=== PATIENT | female | born 1975 | race Asian ===

== ENCOUNTER 2016-12-23 19:40 | Emergency (ER) | payer OTHER ==
[~2016-12-23] VITALS: Ht 157.5 cm; Wt 63.5 kg
[~2016-12-23 19:40] MED LIST: IBUP-1689 PO
[2016-12-23] MEDS ORDERED: SUMA25TA9 PO (20:00)
[2016-12-23] MEDS ORDERED: AMIT10TA6 PO (20:00)
[2016-12-23] MEDS ORDERED: KETOROLAC TROMETHAMINE 30 MG/ML VIAL IVP ONE (21:15)
[2016-12-23] MEDS ORDERED: ONDANSETRON HCL 4 MG/2 ML VIAL IVP ONE (21:15)
[2016-12-23] MEDS ORDERED: MethylPREDNISolone SOD SUCC 125 MG/2 ML VIAL IVP ONE (21:15)
[2016-12-23 21:24] LABS: APPEARANCE,URINE CLEAR (CLEAR); GLUCOSE, URINE (UA) NEGATIVE (NEGATIVE); KETONES,URINE NEGATIVE (NEGATIVE); LEUKOCYTE ESTERASE ,URINE TRACE (NEGATIVE); OCCULT BLOOD,URINE TRACE (NEGATIVE); PH,URINE 7.5 (5.0-8.0); PROTEIN,URINE NEGATIVE (NEGATIVE)
[2016-12-23 21:33] LABS: SQUAMOUS EPITHELIAL CELL,UR Moderate /LPF (None Seen)
[2016-12-23 22:52] VITALS: BP 127/62
== END 2016-12-23 22:55 | disposition home or self-care (01) ==
LOC: EMS 19:43
DX: G43.909 Migraine, unspecified, not intractable, without status migrainosus (principal); Z91.013 Allergy to seafood
CPT/HCPCS: 70450; 81001; 84703; 87086; 96374; 96375; 99285; J1885; J2405; J2930

== ENCOUNTER 2017-09-02 10:15 | Emergency (ER) | payer OTHER ==
[~2017-09-02] VITALS: Ht 154.9 cm; Wt 62.7 kg
[~2017-09-02 10:15] MED LIST changes: +AMIT10TA6 PO; +SUMA25TA9 PO
[2017-09-02 10:22] VITALS: BP 134/108
[2017-09-02 13:03] LABS: APPEARANCE,URINE CLEAR (CLEAR); BILIRUBIN,URINE NEGATIVE (NEGATIVE); GLUCOSE, URINE (UA) NEGATIVE (NEGATIVE); KETONES,URINE NEGATIVE (NEGATIVE); LEUKOCYTE ESTERASE ,URINE NEGATIVE (NEGATIVE); NITRATE,URINE NEGATIVE (NEGATIVE); OCCULT BLOOD,URINE SMALL (NEGATIVE); PROTEIN,URINE NEGATIVE (NEGATIVE); UROBILINOGEN,URINE 0.2 mg/dL (<=1.0)
[2017-09-02 13:12] LABS: BASOPHILS % (AUTO) 0.6 % (0.0-2.0); EOSINOPHILS % (AUTO) 1.4 % (1.0-6.0); HEMOGLOBIN 15.8 g/dL (12.0-16.0); LYMPHOCYTES % (AUTO) 21.2 % (22.0-44.0); MEAN CORPUSCULAR HEMOGLOBIN 30.5 pg (26.0-34.0); MEAN CORPUSCULAR HGB CONC 33.7 G/dL (31.0-37.0); MEAN CORPUSCULAR VOLUME 91 fL (80-100); MONOCYTES # (AUTO) 0.5 K/uL (0.1-1.0); MONOCYTES % (AUTO) 4.9 % (2.0-9.0); NEUTROPHILS # (AUTO) 6.7 K/uL (1.8-7.7); NEUTROPHILS % (AUTO) 71.9 % (40.0-70.0); PLATELET COUNT (AUTO) 301 K/uL (150-450); RED CELL DISTRIBUTION WIDTH 13.8 % (11.5-14.5)
[2017-09-02 13:13] LABS: BACTERIA,URINE Few /HPF (None Seen); SQUAMOUS EPITHELIAL CELL,UR Few /LPF (None Seen); WBC,URINE 0-2 /HPF (0-5)
[2017-09-02 13:35] LABS: ANION GAP 7 mmol/L (8-16); CALCIUM, TOTAL 8.8 mg/dL (8.8-10.5); CARBON DIOXIDE 28 mmol/L (22-29); CHLORIDE 103 mmol/L (98-107); CREATININE 0.59 mg/dL (0.60-1.30); GLOMERULAR FILTR. RATE CALC > 60 mL/min (>60); GLUCOSE,RANDOM 82 mg/dL (70-110); POTASSIUM 4.1 mmol/L (3.5-5.1); SODIUM SERUM 138 mmol/L (136-145); UREA NITROGEN, BLOOD 6 mg/dL (7-18)
[2017-09-02 13:40] LABS: ALANINE AMINOTRANSFERASE 25 U/L (12-78); ALKALINE PHOSPHATASE 52 U/L (46-116); ASPARTATE AMINOTRANSFERASE 20 U/L (15-37); BILIRUBIN,TOTAL 0.7 mg/dL (0.1-1.0); TOTAL PROTEIN, SERUM 8.4 g/dL (6.4-8.2)
== END 2017-09-02 14:57 | disposition home or self-care (01) ==
LOC: EMS 10:18
DX: N83.202 Unspecified ovarian cyst, left side (principal); D25.9 Leiomyoma of uterus, unspecified; G43.909 Migraine, unspecified, not intractable, without status migrainosus; Z91.013 Allergy to seafood; Z79.899 Other long term (current) drug therapy
CPT/HCPCS: 76830; 76856; 99285

== ENCOUNTER 2018-12-19 14:23 | Emergency (ER) | payer OTHER ==
[~2018-12-19] VITALS: Ht 157.5 cm; Wt 58.0 kg
[~2018-12-19 14:23] MED LIST changes: -AMIT10TA6 PO; -SUMA25TA9 PO
[2018-12-19 16:10] LABS: APPEARANCE,URINE CLEAR (CLEAR); BILIRUBIN,URINE NEGATIVE (NEGATIVE); GLUCOSE, URINE (UA) NEGATIVE (NEGATIVE); KETONES,URINE NEGATIVE (NEGATIVE); LEUKOCYTE ESTERASE ,URINE SMALL (NEGATIVE); NITRATE,URINE NEGATIVE (NEGATIVE); OCCULT BLOOD,URINE MODERATE (NEGATIVE); PH,URINE 7.5 (5.0-8.0); PROTEIN,URINE NEGATIVE (NEGATIVE); UROBILINOGEN,URINE 0.2 mg/dL (<=1.0)
[2018-12-19 16:18] LABS: BACTERIA,URINE Few /HPF (None Seen); RBC,URINE 0-2 /HPF (0-2); SQUAMOUS EPITHELIAL CELL,UR Moderate /LPF (None Seen)
[2018-12-19 17:06] LABS: BASOPHILS % (AUTO) 0.9 % (0.0-2.0); EOSINOPHILS % (AUTO) 3.5 % (1.0-6.0); HEMOGLOBIN 13.7 g/dL (12.0-16.0); LYMPHOCYTES # (AUTO) 2.1 K/uL (1.0-4.8); LYMPHOCYTES % (AUTO) 24.8 % (22.0-44.0); MEAN CORPUSCULAR HEMOGLOBIN 30.5 pg (26.0-34.0); MEAN CORPUSCULAR HGB CONC 32.5 G/dL (31.0-37.0); MEAN CORPUSCULAR VOLUME 94 fL (80-100); MONOCYTES # (AUTO) 0.6 K/uL (0.1-1.0); MONOCYTES % (AUTO) 6.6 % (2.0-9.0); NEUTROPHILS # (AUTO) 5.4 K/uL (1.8-7.7); NEUTROPHILS % (AUTO) 64.2 % (40.0-70.0); PLATELET COUNT (AUTO) 241 K/uL (150-450); RED BLOOD CELL COUNT(AUTO) 4.48 MIL/uL (4.00-5.20); RED CELL DISTRIBUTION WIDTH 13.5 % (11.5-14.5)
[2018-12-19 17:23] LABS: ANION GAP 11 mmol/L (8-16); CALCIUM, TOTAL 9.3 mg/dL (8.8-10.5); CARBON DIOXIDE 26 mmol/L (22-29); CHLORIDE 106 mmol/L (98-107); CREATININE 0.58 mg/dL (0.60-1.30); GLOMERULAR FILTR. RATE CALC > 60 mL/min (>60); GLUCOSE,RANDOM 102 mg/dL (70-110); POTASSIUM 3.5 mmol/L (3.5-5.1); SODIUM SERUM 143 mmol/L (136-145); UREA NITROGEN, BLOOD 10 mg/dL (7-18)
[2018-12-19 17:29] LABS: ALANINE AMINOTRANSFERASE 16 U/L (12-78); ALBUMIN 3.7 g/dL (3.4-5.0); ALKALINE PHOSPHATASE 56 U/L (46-116); ASPARTATE AMINOTRANSFERASE 14 U/L (15-37); BILIRUBIN,TOTAL 0.4 mg/dL (0.1-1.0); HCG,QUANTITATIVE < 1 mIU/mL (0-6); LIPASE 127 U/L (73-393); TOTAL PROTEIN, SERUM 7.1 g/dL (6.4-8.2)
[2018-12-19] MEDS ORDERED: KETOROLAC TROMETHAMINE 30 MG/ML VIAL IVP ONE (17:45)
[2018-12-19] MEDS ORDERED: ONDANSETRON HCL 4 MG/2 ML VIAL IVP ONE (19:45)
[2018-12-19 20:04] VITALS: BP 129/88
== END 2018-12-19 20:24 | disposition home or self-care (01) ==
LOC: EMS 14:24
DX: N39.0 Urinary tract infection, site not specified (principal); Z91.013 Allergy to seafood
CPT/HCPCS: 36415; 74176; 80053; 81001; 83690; 84702; 85025; 93005; 96374; 99285; J1885

== ENCOUNTER 2020-04-29 14:34 | Emergency (ER) | payer OTHER ==
[~2020-04-29] VITALS: Ht 154.9 cm; Wt 60.0 kg
[2020-04-29] MEDS ORDERED: IBUP-2759 PO (15:23)
[2020-04-29] MEDS ORDERED: NORT10 PO (15:23)
[2020-04-29 19:36] VITALS: BP 170/99
[2020-04-29] MEDS ORDERED: SODIUM CHLORIDE 0.9% 1,000 ML IV ONE (20:15)
[2020-04-29] MEDS ORDERED: KETOROLAC TROMETHAMINE 30 MG/ML VIAL IVP ONE (20:15)
[2020-04-29] MEDS ORDERED: METOCLOPRAMIDE HCL 5 MG/ML 2 ML VIAL IVP ONE (20:15)
[2020-04-29] MEDS ORDERED: DiphenhydrAMINE HCL 50 MG/ML VIAL IVP ONE (20:15)
== END 2020-04-29 22:07 | disposition home or self-care (01) ==
LOC: EMS 14:41
DX: R51.9 Headache, unspecified (principal); Z91.013 Allergy to seafood
CPT/HCPCS: 96361; 96374; 96375; 99284; J1200; J1885; J2765; J7030

== ENCOUNTER 2021-05-04 17:01 | Emergency (ER) | payer OTHER ==
[~2021-05-04] VITALS: Ht 157.5 cm; Wt 59.1 kg
[~2021-05-04 17:01] MED LIST changes: -IBUP-1689 PO; +IBUP-2759 PO; +NORT10 PO
[2021-05-04] MEDS ORDERED: KETOROLAC TROMETHAMINE 30 MG/ML VIAL IM ONE (18:15)
[2021-05-04] MEDS ORDERED: LIDOCAINE 5% TRANSDERMAL PATCH TD ONE (18:15)
[2021-05-04] MEDS ORDERED: CYCLOBENZAPRINE HCL 10 MG TABLET PO ONE (18:15)
[2021-05-04 20:28] VITALS: BP 135/85
== END 2021-05-04 20:52 | disposition home or self-care (01) ==
LOC: EMS 17:02
DX: R07.89 Other chest pain (principal); M79.10 Myalgia, unspecified site; E78.00 Pure hypercholesterolemia, unspecified; I10 Essential (primary) hypertension; Z91.013 Allergy to seafood
CPT/HCPCS: 71045; 96372; 99283; J1885

== ENCOUNTER 2021-12-27 11:19 | Emergency (ER) | payer OTHER ==
[~2021-12-27] VITALS: Ht 157.5 cm; Wt 59.1 kg
[2021-12-27] MEDS ORDERED: OMEP40CA21 PO (12:06)
[2021-12-27] MEDS ORDERED: RIZA10TA42 PO (12:06)
[2021-12-27] MEDS ORDERED: PROP10TA72 PO (12:06)
[2021-12-27] MEDS ORDERED: LOVA20TA3 PO (12:06)
[2021-12-27] MEDS ORDERED: AMIT-166 PO (12:06)
[2021-12-27] MEDS ORDERED: NAPR-1025 PO (12:06)
[2021-12-27] MEDS ORDERED: CHOL10002 PO (12:06)
[2021-12-27] MEDS ORDERED: METOCLOPRAMIDE HCL 5 MG/ML 2 ML VIAL IVP ONE (15:00)
[2021-12-27] MEDS ORDERED: ACETAMINOPHEN 500 MG TABLET PO ONE (15:00)
[2021-12-27] MEDS ORDERED: DiphenhydrAMINE HCL 50 MG/ML VIAL IVP ONE (15:00)
[2021-12-27] MEDS ORDERED: SODIUM CHLORIDE 0.9% 1,000 ML IV ONE (15:00)
[2021-12-27] MEDS ORDERED: KETOROLAC TROMETHAMINE 30 MG/ML VIAL IVP ONE (15:00)
[2021-12-27 16:21] VITALS: BP 139/81
== END 2021-12-27 16:49 | disposition home or self-care (01) ==
LOC: EMS 11:20
DX: R51.9 Headache, unspecified (principal); E78.00 Pure hypercholesterolemia, unspecified; I10 Essential (primary) hypertension; Z91.013 Allergy to seafood
CPT/HCPCS: 99284; 96374; 96375; 96361; J1200; J1885; J2765

== ENCOUNTER 2022-09-16 11:23 | Emergency (ER) | payer OTHER ==
[~2022-09-16] VITALS: Ht 154.9 cm; Wt 56.8 kg
[~2022-09-16 11:23] MED LIST changes: +AMIT-166 PO; +CHOL10002 PO; -IBUP-2759 PO; +LOVA20TA3 PO; +NAPR-1025 PO; -NORT10 PO; +OMEP40CA21 PO; +PROP10TA72 PO; +RIZA10TA42 PO
[2022-09-16 11:26] VITALS: TEMP 97.8
[2022-09-16] MEDS ORDERED: MECL-160 PO (11:28)
[2022-09-16 11:54] LABS: BASOPHILS % (AUTO) 1.1 % (0.0-2.0); HEMATOCRIT 41.3 % (36-46); HEMOGLOBIN 13.4 g/dL (12.0-16.0); LYMPHOCYTES # (AUTO) 1.6 K/uL (1.0-4.8); MEAN CORPUSCULAR HEMOGLOBIN 30.4 pg (26.0-34.0); MEAN CORPUSCULAR HGB CONC 32.5 G/dL (31.0-37.0); MEAN CORPUSCULAR VOLUME 93 fL (80-100); MONOCYTES # (AUTO) 0.3 K/uL (0.1-1.0); NEUTROPHILS # (AUTO) 4.7 K/uL (1.8-7.7); NEUTROPHILS % (AUTO) 68.9 % (40.0-70.0); PLATELET COUNT (AUTO) 282 K/uL (150-450); RED BLOOD CELL COUNT(AUTO) 4.42 MIL/uL (4.00-5.20); RED CELL DISTRIBUTION WIDTH 14.3 % (11.5-14.5)
[2022-09-16] MEDS ORDERED: ACETAMINOPHEN 325 MG TABLET PO ONE (12:00)
[2022-09-16] MEDS ORDERED: IOHEXOL 350 MG/ML 100 ML VIAL ONE (12:03)
[2022-09-16 12:04] LABS: ANION GAP 10 mmol/L (8-16); CALCIUM, TOTAL 8.7 mg/dL (8.8-10.5); CARBON DIOXIDE 26 mmol/L (22-29); CHLORIDE 106 mmol/L (98-107); CREATININE 0.61 mg/dL (0.60-1.30); GLOMERULAR FILTR. RATE CALC > 60 mL/min (>60); GLUCOSE,RANDOM 148 mg/dL (70-110); POTASSIUM 3.8 mmol/L (3.5-5.1); SODIUM SERUM 142 mmol/L (136-145)
[2022-09-16] MEDS ORDERED: SODIUM CHLORIDE 0.9% 100 ML ONE (12:04)
[2022-09-16 12:19] LABS: ALANINE AMINOTRANSFERASE 29 U/L (12-78); ALBUMIN 3.5 g/dL (3.4-5.0); ALKALINE PHOSPHATASE 86 U/L (46-116); ASPARTATE AMINOTRANSFERASE 23 U/L (15-37); BILIRUBIN,TOTAL 0.8 mg/dL (0.1-1.0); HCG,QUANTITATIVE < 1 mIU/mL (0-6); LIPASE 55 U/L (73-393); TOTAL PROTEIN, SERUM 6.9 g/dL (6.4-8.2)
[2022-09-16 12:29] VITALS: BP 159/86; PULSE 76; RESP 18
[2022-09-16 12:49] LABS: APPEARANCE,URINE CLEAR (CLEAR); BILIRUBIN,URINE NEGATIVE (NEGATIVE); GLUCOSE, URINE (UA) NEGATIVE (NEGATIVE); KETONES,URINE NEGATIVE (NEGATIVE); LEUKOCYTE ESTERASE ,URINE NEGATIVE (NEGATIVE); NITRATE,URINE NEGATIVE (NEGATIVE); OCCULT BLOOD,URINE NEGATIVE (NEGATIVE); PH,URINE 6.5 (5.0-8.0); PROTEIN,URINE NEGATIVE (NEGATIVE); SPECIFIC GRAVITIY, URINE 1.006 (1.003-1.030); UROBILINOGEN,URINE <=1.0 mg/dL (<=1.0)
[2022-09-18] MEDS ORDERED: IBUP-1554 PO (19:31)
[2022-09-18] MEDS ORDERED: ACET-2080 PO (19:31)
== END 2022-09-16 13:32 | disposition home or self-care (01) ==
LOC: EMS 11:27
DX: R10.32 Left lower quadrant pain (principal); E78.00 Pure hypercholesterolemia, unspecified; I10 Essential (primary) hypertension; Z91.013 Allergy to seafood
CPT/HCPCS: 99285; 74177; 71045; 80053; 81003; 83690; 84484; 84702; 85025; 36415; 93005; Q9967; J7050

== ENCOUNTER 2022-11-23 13:23 | Emergency (ER) | payer OTHER ==
[~2022-11-23] VITALS: Ht 165.1 cm; Wt 65.0 kg
[~2022-11-23 13:23] MED LIST changes: +ACET-2080 PO; +IBUP-1554 PO; +MECL-160 PO; -OMEP40CA21 PO; -RIZA10TA42 PO
[2022-11-23 13:30] VITALS: TEMP 98.2
[2022-11-23] MEDS ORDERED: NAPR-1025 PO (15:14)
[2022-11-23] MEDS ORDERED: HYDR-4072 PO (15:14)
[2022-11-23] MEDS ORDERED: POLY238P PO (15:14)
[2022-11-23 15:15] VITALS: BP 110/71; PULSE 90; RESP 17
== END 2022-11-23 15:29 | disposition home or self-care (01) ==
LOC: EMS 13:26
DX: M25.512 Pain in left shoulder (principal); M75.02 Adhesive capsulitis of left shoulder; E78.00 Pure hypercholesterolemia, unspecified; I10 Essential (primary) hypertension; Z87.81 Personal history of (healed) traumatic fracture; Z91.013 Allergy to seafood
CPT/HCPCS: 99283

== ENCOUNTER → 2023-01-26 | Emergency (ER) | payer OTHER ==
[~2023-01-26] VITALS: Ht 157.5 cm; Wt 76.0 kg
[~2023-01-26] MED LIST changes: +BACL10TA PO; +BACLOFEN 10 MG TABLET PO ONE; +CELE-146 PO; +HYDR-4072 PO; +LIDOCAINE 5% TRANSDERMAL PATCH TD ONE; -MECL-160 PO; +MECL-302 PO; +NITR-75 PO; +OMEP40CA21 PO; +POLY238P PO
[2023-01-26 12:06] VITALS: TEMP 98.3
[2023-01-26 14:08] LABS: APPEARANCE,URINE CLEAR (CLEAR); BILIRUBIN,URINE NEGATIVE (NEGATIVE); COLOR,URINE LIGHT YELLOW (YELLOW); GLUCOSE, URINE (UA) NEGATIVE (NEGATIVE); KETONES,URINE NEGATIVE (NEGATIVE); LEUKOCYTE ESTERASE ,URINE LARGE (NEGATIVE); NITRATE,URINE NEGATIVE (NEGATIVE); OCCULT BLOOD,URINE NEGATIVE (NEGATIVE); PH,URINE 6.5 (5.0-8.0); PROTEIN,URINE NEGATIVE (NEGATIVE); SPECIFIC GRAVITIY, URINE 1.018 (1.003-1.030); UROBILINOGEN,URINE <=1.0 mg/dL (<=1.0)
[2023-01-26 14:41] LABS: AMORPHOUS SEDIMENT,UR Few /LPF (None Seen); BACTERIA,URINE Few /HPF (None Seen); RBC,URINE None Seen /HPF (0-2); SQUAMOUS EPITHELIAL CELL,UR Few /LPF (None Seen)
[2023-01-26 15:34] VITALS: BP 132/93; PULSE 68; RESP 18
== END | disposition still patient (30) ==
LOC: EMS 12:01
DX: N39.0 Urinary tract infection, site not specified (principal); M54.50 Low back pain, unspecified; E78.00 Pure hypercholesterolemia, unspecified; I10 Essential (primary) hypertension; Z91.013 Allergy to seafood
CPT/HCPCS: 72100; 81001; 87086; 87186; 99284; Z7502; Z7610

== ENCOUNTER 2023-03-23 18:16 | Emergency (ER) | payer OTHER ==
[~2023-03-23] VITALS: Ht 157.5 cm; Wt 57.7 kg
[~2023-03-23 18:16] MED LIST changes: -ACET-2080 PO; -AMIT-166 PO; -BACLOFEN 10 MG TABLET PO ONE; -HYDR-4072 PO; -IBUP-1554 PO; -LIDOCAINE 5% TRANSDERMAL PATCH TD ONE; -NAPR-1025 PO; -POLY238P PO
[2023-03-23 18:20] VITALS: TEMP 98.3
[2023-03-23 19:08] LABS: COVID AG,FIA SOURCE NASAL SWAB
[2023-03-23 19:44] LABS: INFLUENZA TYPE A NEGATIVE FOR TYPE A (NEGATIVE); INFLUENZA TYPE B NEGATIVE FOR TYPE B (NEGATIVE); SARS-COV2 (COVID) ANTIGEN,FIA Negative (Negative)
[2023-03-23 20:13] VITALS: BP 114/75; PULSE 66; RESP 17
[2023-03-23] MEDS ORDERED: AZIT250T9 PO (20:27)
== END 2023-03-23 20:34 | disposition home or self-care (01) ==
LOC: EMS 18:21
DX: J40 Bronchitis, not specified as acute or chronic (principal); E78.00 Pure hypercholesterolemia, unspecified; I10 Essential (primary) hypertension; Z91.013 Allergy to seafood; Z20.822 Contact with and (suspected) exposure to COVID-19
CPT/HCPCS: 87804; 99283

== ENCOUNTER 2023-06-27 13:15 | Emergency (ER) | payer OTHER ==
[~2023-06-27] VITALS: Ht 157.5 cm; Wt 58.2 kg
[2023-06-27 13:26] VITALS: TEMP 98.3
[2023-06-27 13:55] LABS: APPEARANCE,URINE CLEAR (CLEAR); BILIRUBIN,URINE NEGATIVE (NEGATIVE); COLOR,URINE YELLOW (YELLOW); GLUCOSE, URINE (UA) NEGATIVE (NEGATIVE); KETONES,URINE NEGATIVE (NEGATIVE); LEUKOCYTE ESTERASE ,URINE SMALL (NEGATIVE); NITRATE,URINE NEGATIVE (NEGATIVE); OCCULT BLOOD,URINE SMALL (NEGATIVE); PH,URINE 5.5 (5.0-8.0); PROTEIN,URINE TRACE mg/dL (NEGATIVE); SPECIFIC GRAVITIY, URINE 1.021 (1.003-1.030); UROBILINOGEN,URINE <=1.0 mg/dL (<=1.0)
[2023-06-27 14:03] LABS: BASOPHILS % (AUTO) 1.3 % (0.0-2.0); EOSINOPHILS % (AUTO) 6.9 % (1.0-6.0); HEMATOCRIT 43.5 % (36-46); HEMOGLOBIN 14.4 g/dL (12.0-16.0); LYMPHOCYTES # (AUTO) 2.3 K/uL (1.0-4.8); LYMPHOCYTES % (AUTO) 38.2 % (22.0-44.0); MEAN CORPUSCULAR HEMOGLOBIN 30.1 pg (26.0-34.0); MEAN CORPUSCULAR HGB CONC 33.2 G/dL (31.0-37.0); MEAN CORPUSCULAR VOLUME 91 fL (80-100); MONOCYTES # (AUTO) 0.2 K/uL (0.1-1.0); MONOCYTES % (AUTO) 4.2 % (2.0-9.0); NEUTROPHILS % (AUTO) 49.4 % (40.0-70.0); PLATELET COUNT (AUTO) 258 K/uL (150-450); RED BLOOD CELL COUNT(AUTO) 4.79 MIL/uL (4.00-5.20); RED CELL DISTRIBUTION WIDTH 13.9 % (11.5-14.5)
[2023-06-27 14:09] LABS: BACTERIA,URINE None Seen /HPF (None Seen); RBC,URINE 0-2 /HPF (0-2)
[2023-06-27 14:10] LABS: SQUAMOUS EPITHELIAL CELL,UR Few /LPF (None Seen)
[2023-06-27 14:23] LABS: ANION GAP 8 mmol/L (8-16); CALCIUM, TOTAL 9.5 mg/dL (8.8-10.5); CARBON DIOXIDE 31 mmol/L (22-29); CHLORIDE 105 mmol/L (98-107); CREATININE 0.58 mg/dL (0.60-1.30); GLOMERULAR FILTR. RATE CALC > 60 mL/min (>60); GLUCOSE,RANDOM 87 mg/dL (70-110); POTASSIUM 3.6 mmol/L (3.5-5.1); SODIUM SERUM 143 mmol/L (136-145); UREA NITROGEN, BLOOD 12 mg/dL (7-18)
[2023-06-27 14:29] LABS: ALANINE AMINOTRANSFERASE 25 U/L (12-78); ALBUMIN 3.8 g/dL (3.4-5.0); ALKALINE PHOSPHATASE 75 U/L (46-116); ASPARTATE AMINOTRANSFERASE 20 U/L (15-37); BILIRUBIN,TOTAL 0.8 mg/dL (0.1-1.0); LIPASE 26 U/L (16-77); TOTAL PROTEIN, SERUM 7.8 g/dL (6.4-8.2)
[2023-06-27] MEDS ORDERED: DOCU-412 PO (14:53)
[2023-06-27] MEDS ORDERED: POLY510P31 PO (14:53)
[2023-06-27] MEDS ORDERED: SODIUM CHLORIDE 0.9% 100 ML ONE (15:11)
[2023-06-27] MEDS ORDERED: IOHEXOL 350 MG/ML 100 ML VIAL ONE (15:11)
[2023-06-27] MEDS: KETOROLAC TROMETHAMINE 30 MG/ML VIAL IVP ONE (15:38)
[2023-06-27] MEDS: ACETAMINOPHEN 325 MG TABLET PO ONE (15:38)
[2023-06-27 17:42] VITALS: BP 151/92; PULSE 63; RESP 18
[2023-06-27] MEDS ORDERED: ACET-3385 PO (18:14)
[2023-06-27] MEDS ORDERED: IBUP-1492 PO (18:14)
== END 2023-06-27 18:52 | disposition home or self-care (01) ==
LOC: EMS 13:27
DX: D25.9 Leiomyoma of uterus, unspecified (principal); E78.00 Pure hypercholesterolemia, unspecified; I10 Essential (primary) hypertension; G43.909 Migraine, unspecified, not intractable, without status migrainosus; R10.2 Pelvic and perineal pain; E78.5 Hyperlipidemia, unspecified; Z91.013 Allergy to seafood
CPT/HCPCS: 99285; 74177; 96374; 76830; 76856; 80053; 81001; 83690; 84703; 85025; 36415; J1885; Q9967; J7050

== ENCOUNTER 2023-10-18 16:12 | Emergency (ER) | payer OTHER ==
[~2023-10-18] VITALS: Ht 154.9 cm; Wt 57.7 kg
[~2023-10-18 16:12] MED LIST changes: +ACET-3385 PO; -BACL10TA PO; -CELE-146 PO; +DOCU-412 PO; +IBUP-1492 PO; -NITR-75 PO; -OMEP40CA21 PO; +POLY510P31 PO
[2023-10-18 16:33] VITALS: TEMP 98.7
[2023-10-18 18:54] LABS: BASOPHILS % (AUTO) 0.6 % (0.0-2.0); EOSINOPHILS % (AUTO) 2.5 % (1.0-6.0); HEMATOCRIT 40.3 % (36-46); LYMPHOCYTES # (AUTO) 2.3 K/uL (1.0-4.8); LYMPHOCYTES % (AUTO) 34.9 % (22.0-44.0); MEAN CORPUSCULAR HEMOGLOBIN 29.2 pg (26.0-34.0); MEAN CORPUSCULAR HGB CONC 32.2 G/dL (31.0-37.0); MEAN CORPUSCULAR VOLUME 91 fL (80-100); MONOCYTES # (AUTO) 0.4 K/uL (0.1-1.0); MONOCYTES % (AUTO) 5.5 % (2.0-9.0); NEUTROPHILS # (AUTO) 3.8 K/uL (1.8-7.7); NEUTROPHILS % (AUTO) 56.5 % (40.0-70.0); PLATELET COUNT (AUTO) 245 K/uL (150-450); RED BLOOD CELL COUNT(AUTO) 4.44 MIL/uL (4.00-5.20); RED CELL DISTRIBUTION WIDTH 13.7 % (11.5-14.5); WHITE BLOOD COUNT (AUTO) 6.7 K/uL (4.5-11.0)
[2023-10-18 19:04] LABS: ANION GAP 5 mmol/L (8-16); CALCIUM, TOTAL 9.2 mg/dL (8.8-10.5); CARBON DIOXIDE 32 mmol/L (22-29); CHLORIDE 104 mmol/L (98-107); CREATININE 0.52 mg/dL (0.60-1.30); GLOMERULAR FILTR. RATE CALC > 60 mL/min (>60); GLUCOSE,RANDOM 93 mg/dL (70-110); POTASSIUM 3.6 mmol/L (3.5-5.1); SODIUM SERUM 141 mmol/L (136-145); UREA NITROGEN, BLOOD 13 mg/dL (7-18)
[2023-10-18] MEDS: DEXAMETHASONE SOD PHOS 4 MG/ML 5 ML VIAL IM ONE (19:46)
[2023-10-18 20:26] VITALS: BP 150/95; PULSE 62; RESP 17
== END 2023-10-18 20:57 | disposition home or self-care (01) ==
LOC: EMS 16:12
DX: G43.909 Migraine, unspecified, not intractable, without status migrainosus (principal); R42 Dizziness and giddiness; I10 Essential (primary) hypertension; E78.00 Pure hypercholesterolemia, unspecified; Z91.013 Allergy to seafood
CPT/HCPCS: 99283; 80048; 85025; 36415; 96372; J1100

== ENCOUNTER 2024-06-28 00:05 | Emergency (ER) | payer OTHER ==
[~2024-06-28] VITALS: Ht 157.5 cm; Wt 57.7 kg
[~2024-06-28 00:05] MED LIST changes: -ACET-3385 PO; -CHOL10002 PO; -DOCU-412 PO; -IBUP-1492 PO; -POLY510P31 PO
[2024-06-28 00:07] VITALS: TEMP 98
[2024-06-28 00:50] VITALS: BP 148/80; PULSE 70; RESP 18; O2SAT 100
[2024-06-28] MEDS ORDERED: AMOX1TAB15 PO (00:54)
== END 2024-06-28 01:05 | disposition home or self-care (01) ==
LOC: EMS 00:12
DX: S91.031A Puncture wound without foreign body, right ankle, initial encounter (principal); I10 Essential (primary) hypertension; E78.00 Pure hypercholesterolemia, unspecified; Z91.013 Allergy to seafood; Z79.899 Other long term (current) drug therapy; W54.0XXA Bitten by dog, initial encounter; Y93.89 Activity, other specified; Y92.89 Other specified places as the place of occurrence of the external cause; Y99.8 Other external cause status
CPT/HCPCS: 99283; Z7502

== ENCOUNTER 2024-08-30 15:21 | Emergency (ER) | payer OTHER ==
[~2024-08-30] VITALS: Ht 157.5 cm; Wt 57.7 kg
[~2024-08-30 15:21] MED LIST changes: +AMOX1TAB15 PO
[2024-08-30 15:31] VITALS: TEMP 98.1
[2024-08-30] MEDS ORDERED: AMIT50TA14 PO (15:38)
[2024-08-30 15:43] LABS: COVID AG,FIA SOURCE NASAL SWAB
[2024-08-30 16:08] LABS: INFLUENZA TYPE A NEGATIVE FOR TYPE A (NEGATIVE); INFLUENZA TYPE B NEGATIVE FOR TYPE B (NEGATIVE)
[2024-08-30 16:09] LABS: SARS-COV2 (COVID) ANTIGEN,FIA Negative (Negative)
[2024-08-30] MEDS: METOCLOPRAMIDE HCL 10 MG TABLET PO ONE (20:08)
[2024-08-30] MEDS: IBUPROFEN 400 MG TABLET PO ONE (20:08)
[2024-08-30] MEDS: ACETAMINOPHEN 325 MG TABLET PO ONE (20:08)
[2024-08-30] MEDS ORDERED: METO5TAB95 PO (20:40)
[2024-08-30 20:49] VITALS: BP 141/76; PULSE 76; RESP 18; O2SAT 100
== END 2024-08-30 21:01 | disposition home or self-care (01) ==
LOC: EMS 15:21
DX: G43.909 Migraine, unspecified, not intractable, without status migrainosus (principal); R05.9 Cough, unspecified; E78.00 Pure hypercholesterolemia, unspecified; I10 Essential (primary) hypertension; Z79.899 Other long term (current) drug therapy; Z20.822 Contact with and (suspected) exposure to COVID-19
CPT/HCPCS: 87804; 99284; Z7502; Z7610

== ENCOUNTER 2025-01-12 09:46 | Emergency (ER) | payer OTHER ==
[~2025-01-12] VITALS: Ht 157.5 cm; Wt 58.2 kg
[~2025-01-12 09:46] MED LIST changes: +ACET-2080 PO; -AMOX1TAB15 PO; +IBUP-1554 PO; -MECL-302 PO; +METO5TAB95 PO
[2025-01-12 09:49] VITALS: TEMP 98.6
[2025-01-12 11:05] LABS: PLATELET COUNT (AUTO) 265 K/uL (150-450); RED BLOOD CELL COUNT(AUTO) 4.74 MIL/uL (4.00-5.20); RED CELL DISTRIBUTION WIDTH 14.2 % (11.5-14.5); WHITE BLOOD COUNT (AUTO) 8.7 K/uL (4.5-11.0)
[2025-01-12 11:08] LABS: RBC MORPHOLOGY COMMENT NORMAL RBC MORPH
[2025-01-12 11:18] LABS: CALCIUM, TOTAL 8.9 mg/dL (8.8-10.5); CREATININE 0.75 mg/dL (0.60-1.30); GLOMERULAR FILTR. RATE CALC > 60 mL/min (>60); GLUCOSE,RANDOM 90 mg/dL (70-110); SODIUM SERUM 142 mmol/L (136-145); UREA NITROGEN, BLOOD 11 mg/dL (7-18)
[2025-01-12 11:21] LABS: ASPARTATE AMINOTRANSFERASE 29.0 U/L (15-37); TOTAL PROTEIN, SERUM 7.9 g/dL (6.4-8.2)
[2025-01-12] MEDS ORDERED: SODIUM CHLORIDE 0.9% 100 ML ONE (11:48)
[2025-01-12] MEDS ORDERED: IOHEXOL 350 MG/ML 100 ML VIAL ONE (11:48)
[2025-01-12] MEDS: SODIUM CHLORIDE 0.9% 1,000 ML IV ONE (12:09)
[2025-01-12] MEDS: KETOROLAC TROMETHAMINE 30 MG/ML VIAL IVP ONE (12:10)
[2025-01-12 12:28] LABS: APPEARANCE,URINE CLEAR (CLEAR); GLUCOSE, URINE (UA) NEGATIVE (NEGATIVE); LEUKOCYTE ESTERASE ,URINE TRACE (NEGATIVE); NITRATE,URINE NEGATIVE (NEGATIVE); OCCULT BLOOD,URINE NEGATIVE (NEGATIVE); SPECIFIC GRAVITIY, URINE 1.015 (1.003-1.030)
[2025-01-12 12:46] LABS: SQUAMOUS EPITHELIAL CELL,UR Few /LPF (None Seen)
[2025-01-12] MEDS ORDERED: IBUP-1492 PO (14:20)
[2025-01-12] MEDS ORDERED: ACET-2247 PO (14:20)
[2025-01-12 15:01] VITALS: BP 130/89; PULSE 82; RESP 14; O2SAT 99
== END 2025-01-12 15:03 | disposition home or self-care (01) ==
LOC: EMS 09:46
DX: R10.21 Pelvic and perineal pain right side (principal); R10.30 Lower abdominal pain, unspecified; I10 Essential (primary) hypertension; E78.00 Pure hypercholesterolemia, unspecified; Z91.013 Allergy to seafood; Z79.899 Other long term (current) drug therapy
CPT/HCPCS: 99285; 74177; 96374; 76830; 76856; 96361; 80048; 80076; 81001; 83690; 84703; 85025; 36415; J1885; Q9967; J7030; J7050